=== PATIENT | male | born 1950 | race American Indian/Alaskan Native ===

== ENCOUNTER 2018-04-10 11:24 | Emergency (ER) | payer MEDICARE ==
[2018-04-10] MEDS ORDERED: NACL 0.9% 1000 ML 1,000 ML IV ONE (11:34)
[2018-04-10] MEDS ORDERED: ASPIRIN PO ONE (11:34)
[2018-04-10] MEDS ORDERED: MORPHINE IV ONE (11:35)
--- NOTE | 2018-04-10 11:43 | Emergency Department Report ---
ED Shortness of Breath HPI - General Stated Complaint: SOB/CHEST PAIN Time Seen by Provider: 04/10/18 11:33 Source: patient, family Mode of arrival: Wheelchair Limitations: No Limitations - History of Present Illness Initial Comments: Patient is 67-year-old male that presents emergency room with complaints of chest pain, shortness of breath. Patient states his pain is 10 out of 10. Patient states pain is better with rest and worse with exertion. Patient states he has had radiation 2 days ago for prostate cancer. Patient states his chest pain is right chest and radiating to his right shoulder. Patient states his chest pain is also worse with palpation. Patient denies past medical history of diabetes, hypertension and hyperlipidemia. Patient states only past medical history of advanced prostate cancer. Family states that the patient had a syncopal episode just prior to coming to the ER. Family states that the symptoms were brief period and loss of consciousness worse for a few seconds. MD Complaint: shortness of breath, chest pain -: Sudden Radiation: right arm Severity: severe Pain Scale: 10 Quality: stabbing Consistency: constant Improves With: rest Worsens With: exertion Known History Of: other (recent radiation for prostate cancer) Associated Symptoms: chest pain, pain with inspiration, syncope Treatments Prior to Arrival: none - Related Data Home Oxygen Therapy: No Allergies Allergy/AdvReac Type Severity Reaction Status Date / Time Penicillins AdvReac Anaphylaxis Verified 04/10/18 13:04 ED Review of Systems ROS: Stated complaint: SOB/CHEST PAIN Other details as noted in HPI Constitutional: denies: chills, fever Eyes: denies: eye pain, eye discharge, vision change ENT: denies: ear pain, throat pain Respiratory: shortness of breath. denies: cough, wheezing Cardiovascular: chest pain, palpitations Endocrine: no symptoms reported Gastrointestinal: denies: abdominal pain, nausea, diarrhea Genitourinary: denies: urgency, dysuria Musculoskeletal: denies: back pain, joint swelling, arthralgia Skin: denies: rash, lesions Neurological: denies: headache, weakness, paresthesias Psychiatric: denies: anxiety, depression Hematological/Lymphatic: denies: easy bleeding, easy bruising ED Past Medical Hx - Past Medical History Previous Medical History?: Yes Additional medical history: prostate cancer - Surgical History Past Surgical History?: No - Family History Family history: no significant - Social History Smoking Status: Never Smoker Substance Use Type: None ED Physical Exam - General Limitations: No Limitations General appearance: alert, in no apparent distress - Head Head exam: Present: atraumatic, normocephalic - Eye Eye exam: Present: normal appearance, PERRL Pupils: Present: normal accommodation - ENT ENT exam: Present: mucous membranes moist - Neck Neck exam: Present: normal inspection, full ROM - Respiratory Respiratory exam: Present: normal lung sounds bilaterally, chest wall tenderness. Absent: respiratory distress - Cardiovascular Cardiovascular Exam: Present: regular rate, normal rhythm, tachycardia. Absent: systolic murmur, diastolic murmur, rubs, gallop - GI/Abdominal GI/Abdominal exam: Present: soft, normal bowel sounds. Absent: distended, tenderness, guarding, rebound - Rectal Rectal exam: Present: deferred - Extremities Exam Extremities exam: Present: normal inspection - Back Exam Back exam: Present: normal inspection - Neurological Exam Neurological exam: Present: alert, oriented X3 - Psychiatric Psychiatric exam: Present: normal affect, normal mood - Skin Skin exam: Present: warm, dry, intact, normal color. Absent: rash ED Course Vital Signs 04/10/18 04/10/18 04/10/18 11:31 11:35 11:42 Temperature 98.6 F Pulse Rate 147 H 147 H Respiratory 26 H 18 18 Rate Blood Pressure 124/69 Blood Pressure 124/69 [Right] O2 Sat by Pulse 98 98 Oximetry 04/10/18 04/10/18 04/10/18 11:45 12:00 12:15 Temperature 97.7 F Pulse Rate 137 H 129 H 125 H Respiratory 19 17 19 Rate Blood Pressure 124/69 113/57 113/57 Blood Pressure [Right] O2 Sat by Pulse Oximetry 04/10/18 04/10/18 04/10/18 12:31 12:45 13:21 Temperature Pulse Rate 124 H 124 H 119 H Respiratory 15 16 17 Rate Blood Pressure 113/57 113/57 113/57 Blood Pressure [Right] O2 Sat by Pulse Oximetry 04/10/18 04/10/18 04/10/18 13:31 13:45 14:00 Temperature Pulse Rate 116 H 118 H 117 H Respiratory 18 16 16 Rate Blood Pressure 113/57 110/62 95/59 Blood Pressure [Right] O2 Sat by Pulse Oximetry 04/10/18 04/10/18 04/10/18 14:15 14:31 14:45 Temperature Pulse Rate 122 H 118 H 118 H Respiratory 18 19 18 Rate Blood Pressure 95/59 95/59 101/61 Blood Pressure [Right] O2 Sat by Pulse Oximetry 04/10/18 04/10/18 04/10/18 15:05 15:09 15:15 Temperature 98.4 F Pulse Rate 118 H 116 H 116 H Respiratory 19 16 16 Rate Blood Pressure Blood Pressure 101/61 [Right] O2 Sat by Pulse Oximetry 04/10/18 04/10/18 04/10/18 15:20 15:31 15:45 Temperature 98.4 F Pulse Rate 115 H 114 H Respiratory 2 L 16 15 Rate Blood Pressure 101/61 101/61 Blood Pressure [Right] O2 Sat by Pulse 100 Oximetry 04/10/18 04/10/18 16:00 16:15 Temperature Pulse Rate 116 H 119 H Respiratory 12 16 Rate Blood Pressure 101/61 114/50 Blood Pressure [Right] O2 Sat by Pulse Oximetry - Reevaluation(s) Reevaluation #1: Discussed all results with patient and family. Discussed transfer with patient and family. Patient and family agree with the plan of care and transfer. Patient still denies trauma to head. 04/10/18 14:24 - Consultations Consultation #1: [facility] consultation and paged 04/10/18 14:20 ER doctor, Dr. Long has accepted patient for ER to ER transfer. Patient will be transported via ground EMS. 04/10/18 15:22 ED Medical Decision Making - Lab Data Result diagrams: 04/10/18 11:43 04/10/18 11:43 - EKG Data -: EKG Interpreted by [facility] EKG shows normal: sinus rhythm, axis, intervals, QRS complexes, ST-T waves Rate: tachycardia - Radiology Data Radiology results: report reviewed CT head without contrast: Syncope. Axial images demonstrates an extracerebral convex high density collection along the left temporoparietal region measuring 3.4 cm in length and approximately 7 mm in maximum height. There did not appear to be any significant focal mass effect although the midline appears to be shifted to the right by approximately 2 mm. The bone appears intact but there is superficial swelling of the soft tissues. The remainder of the intracranial anatomy appears generally unremarkable for this patient's stated age. There is a small polyp in the medial left maxillary sinus and there is mucoperiosteal thickening of the posterior left ethmoid sinuses. There is marked nuchal periosteal thickening in the left sphenoid sinus with what may represent an air-fluid level. Minimal mucoperiosteal thickening noted in the left sphenoid sinus. The bony structures otherwise appear unremarkable. Impression: 1. Evidence of head trauma with left subdural hematoma and slight midline shift. 2. Sinus inflammatory changes with possible fluid in the sphenoid sinus. ] CTA CHEST: HISTORY: chest pain. COMPARISON: The AP chest performed same day. TECHNIQUE: Helical CT in 1.25mm intervals following IV contrast. Pulmonary embolus protocol. Sagittal and coronal reformatted images. Rotational MIP images. FINDINGS: Contrast bolus is satisfactory. No pulmonary embolus is identified. Thyroid gland: Normal. Tracheobronchial tree: Normal. Esophagus: Normal. Heart: Normal. Pericardium: Normal. Mediastinum: Normal. Lung Bedoya: normal. Pleural Spaces: Small bilateral layering pleural effusions are identified, right greater than left. There is a very subtle focal area of smooth pleural thickening measuring 2.4 cm in diameter and 4 mm in thickness in the lateral left lung. Musculoskeletal: Diffuse sclerosis of the bony structures is demonstrated suggesting diffuse metastatic disease. No pathologic fracture is identified. Limited images of the upper abdomen demonstrate scattered, small, subtle enhancing lesions in the liver. The largest lesion measures 2.3 cm near the base of the caudate lobe IMPRESSION: No evidence for pulmonary embolus. Small bilateral pleural effusions. Focal area of pleural thickening in the lateral left lung which could be related to metastatic disease. Multiple subtle liver lesions consistent with metastatic process. Diffuse bony lesions. AP CHEST: HISTORY: chest pain No comparison at this facility. There are multiple sclerotic bony lesions throughout the thoracic cage and shoulders. A metastatic process is suspected. Normal heart size and pulmonary vessels. The lungs are generally clear. No evidence for pneumonia, mass or pneumothorax. IMPRESSION: Multiple sclerotic bony lesions are identified concerning for a metastatic process. Prostate cancer? Unremarkable heart and lungs. - Medical Decision Making Patient is 67-year-old male presents emergency with syncopal episode, chest pain and shortness of breath. Patient found to have a subdural hematoma. Patient transferred to [facility]. Patient was accepted by the ER doctor, Dr. Benítez for ER to ER transfer. Patient be transported via ground EMS. Patient's d-dimer elevated CTA done. CTA was negative except for multiple metastasis. Labs unremarkable except for elevated d-dimer, lactic acidosis, and elevated WBC. Findings consistent with history of radiation and cancer. Patient stable for transfer. Patient was transported via ground EMS. Patient agrees with plan of care. - Differential Diagnosis syncope. Chest pain. Short of breath. PE. Critical Care Time: Yes Critical care attestation.: If time is entered above; I have spent that time in minutes in the direct care of this critically ill patient, excluding procedure time. Critical Care Time: 80 minutes ED Disposition Clinical Impression: Lactic acid acidosis, SOB (shortness of breath), Subdural hematoma Chest pain Qualifiers: Chest pain type: unspecified Qualified Code(s): R07.9 - Chest pain, unspecified Syncope Qualifiers: Syncope type: unspecified Qualified Code(s): R55 - Syncope and collapse Disposition: DC/TX-70 ANOTHER TYPE HLTHCARE Is pt being admited?: No Does the pt Need Aspirin: No Condition: Critical Instructions: Chest Pain (ED), Syncope (ED) Referrals: ANDREA VAUGHN MD [Primary Care Provider] - 3-5 Days Time of Disposition: 14:20
[2018-04-10] MEDS ORDERED: NACL 0.9% 1000 ML IV ONE (11:46)
[2018-04-10] MEDS ORDERED: ZOFRAN ONE (11:50)
--- NOTE | 2018-04-10 11:51 | XRay Report ---
AP CHEST: HISTORY: chest pain No comparison at this facility. There are multiple sclerotic bony lesions throughout the thoracic cage and shoulders. A metastatic process is suspected. Normal heart size and pulmonary vessels. The lungs are generally clear. No evidence for pneumonia, mass or pneumothorax. IMPRESSION: Multiple sclerotic bony lesions are identified concerning for a metastatic process. Prostate cancer? Unremarkable heart and lungs.
[2018-04-10 12:02] LABS: Hematocrit 25.4 % (35.5-45.6); Hemoglobin 7.9 gm/dl (11.8-15.2); Mean Corpuscular HGB Conc 31 % (32-34); Platelet Count 456 K/mm3 (140-440); Red Blood Count 3.79 M/mm3 (3.65-5.03)
[2018-04-10 12:03] LABS: Mean Corpuscular Volume 67 fl (84-94); Red Cell Distribution Width 24.3 % (13.2-15.2)
[2018-04-10 12:17] LABS: Albumin 2.8 g/dL (3.9-5); BUN/Creatinine Ratio 28; Blood Urea Nitrogen 14 mg/dL (9-20); Creatine Kinase MB < 1.0 ng/mL (0.0-4.0); Hemolysis Index 95
[2018-04-10] MEDS ORDERED: MAXIPIME/NS 2 GM/100 ML 2 GM/100 ML BAG IV ONE (12:20)
[2018-04-10 12:22] LABS: Alanine Aminotransferase 8 units/L (7-56)
[2018-04-10 12:25] LABS: Calcium 8.1 mg/dL (8.4-10.2)
--- NOTE | 2018-04-10 13:40 | Cat Scan Report ---
CT head without contrast: Syncope. Axial images demonstrates an extracerebral convex high density collection along the left temporoparietal region measuring 3.4 cm in length and approximately 7 mm in maximum height. There did not appear to be any significant focal mass effect although the midline appears to be shifted to the right by approximately 2 mm. The bone appears intact but there is superficial swelling of the soft tissues. The remainder of the intracranial anatomy appears generally unremarkable for this patient's stated age. There is a small polyp in the medial left maxillary sinus and there is mucoperiosteal thickening of the posterior left ethmoid sinuses. There is marked nuchal periosteal thickening in the left sphenoid sinus with what may represent an air-fluid level. Minimal mucoperiosteal thickening noted in the left sphenoid sinus. The bony structures otherwise appear unremarkable. Impression: 1. Evidence of head trauma with left subdural hematoma and slight midline shift. 2. Sinus inflammatory changes with possible fluid in the sphenoid sinus.
--- NOTE | 2018-04-10 13:45 | Cat Scan Report ---
CTA CHEST: HISTORY: chest pain. COMPARISON: The AP chest performed same day. TECHNIQUE: Helical CT in 1.25mm intervals following IV contrast. Pulmonary embolus protocol. Sagittal and coronal reformatted images. Rotational MIP images. FINDINGS: Contrast bolus is satisfactory. No pulmonary embolus is identified. Thyroid gland: Normal. Tracheobronchial tree: Normal. Esophagus: Normal. Heart: Normal. Pericardium: Normal. Mediastinum: Normal. Lung Bedoya: normal. Pleural Spaces: Small bilateral layering pleural effusions are identified, right greater than left. There is a very subtle focal area of smooth pleural thickening measuring 2.4 cm in diameter and 4 mm in thickness in the lateral left lung. Musculoskeletal: Diffuse sclerosis of the bony structures is demonstrated suggesting diffuse metastatic disease. No pathologic fracture is identified. Limited images of the upper abdomen demonstrate scattered, small, subtle enhancing lesions in the liver. The largest lesion measures 2.3 cm near the base of the caudate lobe IMPRESSION: No evidence for pulmonary embolus. Small bilateral pleural effusions. Focal area of pleural thickening in the lateral left lung which could be related to metastatic disease. Multiple subtle liver lesions consistent with metastatic process. Diffuse bony lesions.
[2018-04-10 14:42] LABS: Basophils % (Manual) 0 % (0.0-1.8); Eosinophils % (Manual) 0 % (0.0-4.3); Total Cells Counted 100
[2018-04-10 14:43] LABS: Anisocytosis 2+; Hypochromasia 1+; Ovalocytes 1+; Poikilocytosis 2+; Target Cells 1+; Tear Drop Cells Few
[2018-04-10 14:44] LABS: Platelet Estimate Consistent w Auto
[2018-04-10 16:35] VITALS: BP 114/50
== END 2018-04-10 16:32 | disposition other institution (70) ==
LOC: ED 11:24
DX: S06.5X0A Traumatic subdural hemorrhage without loss of consciousness, initial encounter (principal); R07.89 Other chest pain; R06.02 Shortness of breath; E87.2 Acidosis; Z85.46 Personal history of malignant neoplasm of prostate; Z88.0 Allergy status to penicillin; X58.XXXA Exposure to other specified factors, initial encounter; Y93.89 Activity, other specified; Y92.89 Other specified places as the place of occurrence of the external cause; Y99.8 Other external cause status
CPT/HCPCS: 36415; 70450; 71045; 71275; 80053; 82140; 82550; 82553; 83880; 84484; 85007; 85025; 85379; 87040; 93005; 93010; 96361; 96365; 96375; 99291; 99292; J0692; J2270; J2405; J7030; Q9967

== ENCOUNTER 2018-06-11 11:33 | Inpatient (IN) | payer MEDICARE, MEDICAID ==
--- NOTE | 2018-06-11 12:33 | Emergency Department Report ---
- General Chief complaint: Weakness Stated complaint: NO BMX6 Time Seen by Provider: 06/11/18 12:19 Source: EMS Mode of arrival: Stretcher Limitations: Altered Mental Status, Physical Limitation - History of Present Illness Initial comments: 67-year-old male with a past medical history of metastatic prostate cancer and recent subdural in March presents to the hospital with generalized weakness and possible dehydration. Patient has had a gradual decline since discharge from the hospital after subdural treatment in March. Patient has a visiting nurse who recommended transport to the hospital due to worsening weakness. The last 2-3 days patient has been too weak to ambulate. He R he has a poor appetite and has been drinking less fluids. He complains of pain to his b ilateral shoulders. He is on morphine 60 mg extended release by mouth twice a day, and Tylenol and morphine 15 mg when necessary additional pain. He has not had a bowel movement in 6 days. No reports of cough or fever. Patient is still receiving Lupron shots. Family is interested in discussing hospice care for additional home help. PMD: Dr. Montgomery Hematolgeremias Adames Severity scale (0 -10): 6 - Related Data Allergies Allergy/AdvReac Type Severity Reaction Status Date / Time Penicillins AdvReac Anaphylaxis Verified 04/10/18 13:04 ED Review of Systems ROS: Stated complaint: NO BMX6 Other details as noted in HPI Comment: All other systems reviewed and negative ED Past Medical Hx - Past Medical History Previous Medical History?: Yes Hx Hypertension: No Hx CVA: No Hx Heart Attack/AMI: No Hx Congestive Heart Failure: No Hx Diabetes: No Hx Deep Vein Thrombosis: No Hx Pulmonary Embolism: No Hx GERD: No Hx Liver Disease: No Hx Renal Disease: No Hx of Cancer: Yes Hx Sickle Cell Disease: No Hx Arthritis: No Hx Headaches / Migraines: No Hx Seizures: No Hx Kidney Stones: No Hx Psychiatric Treatment: No Hx Asthma: No Hx COPD: No Hx Tuberculosis: No Hx Dementia: No Hx HIV: No Additional medical history: prostate cancer - Surgical History Hx Coronary Stent: No Hx Open Heart Surgery: No Hx Pacemaker: No Hx Internal Defibrillator: No Hx Cholecystectomy: No Hx Appendectomy: No Hx Breast Surgery: No - Social History Smoking Status: Never Smoker Substance Use Type: None ED Physical Exam - General Limitations: Altered Mental Status, Physical Limitation - Other Other exam information: General: No limitations, patient is alert in no acute distress Head exam: Atraumatic, normocephalic Eyes exam: Normal appearance, pupils equal reactive to light, extraocular movements intact ENT: Moist mucous membrane, normal oropharynx Neck exam: Normal inspection, full range of motion, no meningismus nontender Respiratory exam: Clear to auscultation bilateral, no wheezes, rales, crackles Cardiovascular: Tachycardic regular rhythm Abdomen: Soft, nondistended, right upper quadrant tenderness, with normal bowel sounds, no rebound, or guarding Extremity: Full range of motion but pain to bilateral shoulders Back: Normal Inspection, full range of motion, no tenderness Neurologic: Alert, oriented x3, cranial nerves intact, generalized weakness without focal deficit sensation grossly intact Psychiatric: normal affect, normal mood Skin: Warm, dry, intact ED Course Vital Signs 06/11/18 06/11/18 06/11/18 11:56 12:00 12:02 Temperature 97.9 F Pulse Rate 136 H 135 H 134 H Respiratory 20 20 16 Rate Blood Pressure 133/67 133/67 O2 Sat by Pulse 100 100 99 Oximetry 06/11/18 06/11/18 06/11/18 12:15 12:30 12:45 Temperature Pulse Rate 132 H 142 H 145 H Respiratory 16 21 21 Rate Blood Pressure 123/62 123/62 129/67 O2 Sat by Pulse 100 100 100 Oximetry 06/11/18 06/11/18 06/11/18 13:00 13:15 13:30 Temperature Pulse Rate 146 H 139 H 135 H Respiratory 28 H 18 17 Rate Blood Pressure 129/67 120/62 120/62 O2 Sat by Pulse 97 100 100 Oximetry 06/11/18 13:46 Temperature Pulse Rate 139 H Respiratory 22 Rate Blood Pressure 135/65 O2 Sat by Pulse 98 Oximetry - Consultations Consultation #1: 06/11/18 14:[address] adames (no discussed) can be completed during admission (not an emergent consult) ED Medical Decision Making - Lab Data Result diagrams: 06/11/18 13:01 06/11/18 13:01 - EKG Data -: EKG Interpreted by Me EKG shows normal: sinus rhythm, axis (qrs 59), QRS complexes (qrsd 75), ST-T waves Rate: tachycardia, bradycardia (136) - Radiology Data Radiology results: report reviewed ABDOMINAL SERIES: History: Constipation, tachycardia, metastatic cancer. Erect chest film shows no acute or significant changes involving the heart or lung lauren. There is no evidence of free air beneath the diaphragms. The gas pattern within the abdomen is unremarkable. There is no evidence of bowel dilatation, significant air-fluid levels, or masses. There is moderate stool in the right hemicolon. Organ shadows are unremarkable. There are numerous sclerotic bony lesions throughout the axial and proximal appendicular skeleton consistent with metastatic disease. IMPRESSION: Mild constipation. Diffuse skeletal metastasis. - Medical Decision Making gen weakness and tachy due to dehydration vs anemia vs sepsis Poor po intake reported. bun/cr normal but low sodium and chloride >30ml/kg bolus on NS given levaquin given for possible sepsis. No source on infection identified. cultures pending. UA collection pending other possibility of SIRS related to Cancer without infection type and screen ordered for anemia. 1 point drop hemoglobin drop compared to previous. 1 unit prbc ordered If tachy persists despite other sources need to be considered such as Pulm embolism (no tachypnea or hypoxia or chest pain at this time)or pain. thyroid panel with normal t4 hospitalist informed of admission and family would like to to discuss discharge into home hospice - Differential Diagnosis anemia, dehydration, infection, Pulm emboli, pain, fever, constipation Critical Care Time: No Critical care attestation.: If time is entered above; I have spent that time in minutes in the direct care of this critically ill patient, excluding procedure time. ED Disposition Clinical Impression: Prostate cancer metastatic to multiple sites, Generalized weakness, Tachycardia, SIRS (systemic inflammatory response syndrome), Dehydration, Anemia Disposition: OP ADMIT IP TO THIS HOSP Is pt being admited?: Yes Condition: Stable Time of Disposition: 14:25
[2018-06-11] MEDS ORDERED: NACL 0.9% 1000 ML IV ONE (12:41)
[2018-06-11 13:29] LABS: Hematocrit 21.9 % (35.5-45.6); Hemoglobin 6.8 gm/dl (11.8-15.2); Mean Corpuscular HGB Conc 31 % (32-34); Platelet Count 218 K/mm3 (140-440); Red Blood Count 3.59 M/mm3 (3.65-5.03)
[2018-06-11 13:30] LABS: Mean Corpuscular Volume 61 fl (84-94); Red Cell Distribution Width 21.9 % (13.2-15.2)
--- NOTE | 2018-06-11 13:36 | XRay Report ---
ABDOMINAL SERIES: History: Constipation, tachycardia, metastatic cancer. Erect chest film shows no acute or significant changes involving the heart or lung lauren. There is no evidence of free air beneath the diaphragms. The gas pattern within the abdomen is unremarkable. There is no evidence of bowel dilatation, significant air-fluid levels, or masses. There is moderate stool in the right hemicolon. Organ shadows are unremarkable. There are numerous sclerotic bony lesions throughout the axial and proximal appendicular skeleton consistent with metastatic disease. IMPRESSION: Mild constipation. Diffuse skeletal metastasis.
[2018-06-11 13:37] LABS: INR 1.37 (0.87-1.13)
[2018-06-11 13:38] LABS: Partial Thromboplastin Time 42.9 Sec. (24.2-36.6)
[2018-06-11 13:55] LABS: Creatine Kinase MB 1.6 ng/mL (0.0-4.0)
[2018-06-11 13:57] LABS: Alanine Aminotransferase 9 units/L (7-56); Albumin 2.5 g/dL (3.9-5); BUN/Creatinine Ratio 33; Blood Urea Nitrogen 13 mg/dL (9-20); Calcium 7.9 mg/dL (8.4-10.2); Hemolysis Index 0
[2018-06-11 14:02] LABS: Free T4 (Free Thyroxine) 1.46 ng/dL (0.76-1.46)
[2018-06-11] MEDS ORDERED: LEVAQUIN 750MG/150ML 750 MG/150 ML BAG IV ONE (14:03)
[2018-06-11 14:13] LABS: Basophils % (Manual) 0 % (0.0-1.8); Myelocytes # (Manual) 0.1 K/mm3; Total Cells Counted 100
[2018-06-11] MEDS ORDERED: NACL 0.9% IV ONE (14:13)
[2018-06-11] MEDS ORDERED: NACL 0.9% 500 ML 500 ML IV ONE (14:13)
[2018-06-11 14:14] LABS: Anisocytosis 1+; Giant Platelets Rare; Hypochromasia 1+; Large Platelets Few; Ovalocytes Few; Platelet Estimate Consistent w Auto; Poikilocytosis 2+; Target Cells 1+; Tear Drop Cells Rare
[2018-06-11] MEDS ORDERED: PROVENTIL IH PRN (17:48)
[2018-06-11] MEDS ORDERED: ZOFRAN IV PRN (17:48)
[2018-06-11] MEDS ORDERED: TYLENOL PO PRN (17:48)
[2018-06-11] MEDS ORDERED: SODIUM CHLORIDE FLUSH SYRINGE 10 ML IV PRN (17:48)
--- NOTE | 2018-06-11 17:51 | History and Physical Report ---
History of Present Illness Chief complaint: He is weak, and its getting worse History of present illness: 67 YO Male with CaP with metastatic disease to the Spine, Severe Malnutrition, Encephalopathy presents to ED for evaluation. Pt is confused and lethargic and unable to provide history. Pt history provided by and daughter who is at bedside during exam and interview. Pt family reports that patient has become progressively weak and confused and is currently unable to independently conduct activities of daily living. EMS notified and upon arrival the patient was found to be in distress and transported to [facility]. Pt seen and evaluated in ED and found to have Encephalopathy, SIRS, and Metastatic Prostate Cancer. Pt found to have poor prognosis. Pt family request supportive care and transition to hospice care . Pt family counseled and request [facility]. Consult placed in ED. Pt family elects to make patient AND/DNR. Pt admitted to [facility] unit. Pt family acknowledge understanding of poor prognosis, and agrees with plan of care. No further history obtainable. No previous admissions for review. Oncology team consulted in ED. PCP: Dr. Montgomery Past History Past Medical History: cancer Past Surgical History: No surgical history, Other (reviewed) Social history: , lives with family. denies: smoking, alcohol abuse, prescription drug abuse Family history: no significant family history (reviewed) Medications and Allergies Allergies Allergy/AdvReac Type Severity Reaction Status Date / Time Penicillins AdvReac Anaphylaxis Verified 04/10/18 13:04 Active Meds: Active Medications Acetaminophen (Tylenol) 650 mg PO Q4H PRN PRN Reason: Pain MILD(1-3)/Fever >100.5/PEREYRA Albuterol (Proventil) 2.5 mg IH Q4HRT PRN PRN Reason: Shortness Of Breath Docusate Sodium (Colace) 100 mg PO BID GERHARD Hydromorphone HCl (Dilaudid) 0.5 mg IV Q3H PRN PRN Reason: Pain , Severe (7-10) Sodium Chloride (Nacl 0.45% 1000 Ml) 1,000 mls @ 42 mls/hr IV DIRECT GERHARD Ondansetron HCl (Zofran) 4 mg IV Q8H PRN PRN Reason: Nausea And Vomiting Sodium Chloride (Sodium Chloride Flush Syringe 10 Ml) 10 ml IV BID GERHARD Sodium Chloride (Sodium Chloride Flush Syringe 10 Ml) 10 ml IV PRN PRN PRN Reason: LINE FLUSH Review of Systems Constitutional: weight loss, weakness, lethargy, no weight gain, no fever, no chills Ears, nose, mouth and throat: no ear pain, no ear discharge, no tinnitis, no decreased hearing, no nose pain Cardiovascular: no chest pain, no orthopnea, no palpitations, no rapid/irregular heart beat, no edema Respiratory: no cough, no cough with sputum, no excessive sputum, no hemoptysis, no shortness of breath Gastrointestinal: no nausea, no vomiting, no diarrhea, no constipation Genitourinary Male: no hematuria, no flank pain, no discharge, no urinary frequency, no urinary hesitancy, no nocturia Rectal: no pain, no incontinence, no bleeding Musculoskeletal: no neck stiffness, no neck pain, no shooting arm pain, no arm numbness/tingling, no low back pain Integumentary: no rash, no pruritis, no redness, no sores, no wounds Neurological: no paralysis, no weakness, no parathesias, no numbness, no tingling, no seizures Psychiatric: no anxiety, no memory loss, no change in sleep habits, no sleep disturbances, no hypersomnia, no change in appetite, no change in libido Endocrine: no cold intolerance, no heat intolerance, no excessive thirst, no polydipsia, no polyuria, no nocturia, no flushing Hematologic/Lymphatic: no easy bruising, no easy bleeding, no lymphadenopathy, no lymphedema Allergic/Immunologic: no urticaria, no allergic rhinitis, no wheezing, no anaphylaxis Exam - Constitutional Vitals: Temp Pulse Resp BP Pulse Ox 97.9 F 137 H 23 128/53 100 06/11/18 12:02 06/11/18 15:00 06/11/18 15:00 06/11/18 15:00 06/11/18 15:00 General appearance: Present: mild distress, cachectic - EENT Eyes: Present: miosis - Neck Neck: Present: supple, normal ROM - Respiratory Respiratory effort: normal Respiratory: bilateral: CTA - Cardiovascular Heart Sounds: Present: S1 & S2. Absent: rub, click - Extremities Extremities: pulses symmetrical, No edema - Abdominal General gastrointestinal: Present: soft, non-tender, non-distended, normal bowel sounds Male genitourinary: Present: normal - Integumentary Integumentary: Present: clear, dry, clammy, decreased turgor - Musculoskeletal Musculoskeletal: generalized weakness - Psychiatric Psychiatric: no appropriate mood/affect, no intact judgment & insight, no memory intact - Neurologic Neurologic: no focal deficits, moves all extremities, no gait normal Results - Labs CBC & Chem 7: 06/11/18 13:01 06/11/18 13:01 Labs: Abnormal lab results 06/11/18 06/11/18 06/11/18 Range/Units 13:01 13:01 13:01 WBC 13.6 H (4.5-11.0) K/mm3 RBC 3.59 L (3.65-5.03) M/mm3 Hgb 6.8 L (11.8-15.2) gm/dl Hct 21.9 L (35.5-45.6) % MCV 61 L (84-94) fl MCH 19 L (28-32) pg MCHC 31 L (32-34) % RDW 21.9 H (13.2-15.2) % Seg Neuts % (Manual) 83.0 H (40.0-70.0) % Lymphocytes % (Manual) 6.0 L (13.4-35.0) % Seg Neutrophils # Man 11.3 H (1.8-7.7) K/mm3 Lymphocytes # (Manual) 0.8 L (1.2-5.4) K/mm3 PT 17.8 H (12.2-14.9) Sec. INR 1.37 H (0.87-1.13) APTT 42.9 H (24.2-36.6) Sec. Sodium 130 L (137-145) mmol/L Chloride 96.1 L (98-107) mmol/L Carbon Dioxide 18 L (22-30) mmol/L Creatinine 0.4 L (0.8-1.5) mg/dL Glucose 148 H (75-100) mg/dL Lactic Acid (0.7-2.0) mmol/L Calcium 7.9 L (8.4-10.2) mg/dL Total Bilirubin 1.70 H (0.1-1.2) mg/dL Alkaline Phosphatase 599 H (35-129) units/L Total Creatine Kinase (55-170) units/L Total Protein 6.0 L (6.3-8.2) g/dL Albumin 2.5 L (3.9-5) g/dL TSH (0.270-4.200) mlU/mL Crossmatch 06/11/18 06/11/18 06/11/18 Range/Units 13:01 13:01 13:01 WBC (4.5-11.0) K/mm3 RBC (3.65-5.03) M/mm3 Hgb (11.8-15.2) gm/dl Hct (35.5-45.6) % MCV (84-94) fl MCH (28-32) pg MCHC (32-34) % RDW (13.2-15.2) % Seg Neuts % (Manual) (40.0-70.0) % Lymphocytes % (Manual) (13.4-35.0) % Seg Neutrophils # Man (1.8-7.7) K/mm3 Lymphocytes # (Manual) (1.2-5.4) K/mm3 PT (12.2-14.9) Sec. INR (0.87-1.13) APTT (24.2-36.6) Sec. Sodium (137-145) mmol/L Chloride (98-107) mmol/L Carbon Dioxide (22-30) mmol/L Creatinine (0.8-1.5) mg/dL Glucose (75-100) mg/dL Lactic Acid 3.00 H* (0.7-2.0) mmol/L Calcium (8.4-10.2) mg/dL Total Bilirubin (0.1-1.2) mg/dL Alkaline Phosphatase (35-129) units/L Total Creatine Kinase 358 H (55-170) units/L Total Protein (6.3-8.2) g/dL Albumin (3.9-5) g/dL TSH 7.940 H (0.270-4.200) mlU/mL Crossmatch 06/11/18 Range/Units 13:42 WBC (4.5-11.0) K/mm3 RBC (3.65-5.03) M/mm3 Hgb (11.8-15.2) gm/dl Hct (35.5-45.6) % MCV (84-94) fl MCH (28-32) pg MCHC (32-34) % RDW (13.2-15.2) % Seg Neuts % (Manual) (40.0-70.0) % Lymphocytes % (Manual) (13.4-35.0) % Seg Neutrophils # Man (1.8-7.7) K/mm3 Lymphocytes # (Manual) (1.2-5.4) K/mm3 PT (12.2-14.9) Sec. INR (0.87-1.13) APTT (24.2-36.6) Sec. Sodium (137-145) mmol/L Chloride (98-107) mmol/L Carbon Dioxide (22-30) mmol/L Creatinine (0.8-1.5) mg/dL Glucose (75-100) mg/dL Lactic Acid (0.7-2.0) mmol/L Calcium (8.4-10.2) mg/dL Total Bilirubin (0.1-1.2) mg/dL Alkaline Phosphatase (35-129) units/L Total Creatine Kinase (55-170) units/L Total Protein (6.3-8.2) g/dL Albumin (3.9-5) g/dL TSH (0.270-4.200) mlU/mL Crossmatch See Detail Assessment and Plan - Patient Problems (1) Prostate cancer metastatic to multiple sites Current Visit: Yes Status: Acute Plan to address problem: Hospice consulted as per family request, Pain control, Morphine ED BID, Dilaudid prn, IVF resuscitation as tolerated, Pt family elects to make patient AND/DNR. (2) Encephalopathy Current Visit: Yes Status: Acute Plan to address problem: Bed alarm, fall precautions, comfort care, diet as tolerated, aspiration precautions. No further testing as per family. (3) Anemia Current Visit: Yes Status: Acute Plan to address problem: PRBC transfusion, supportive care. (4) SIRS (systemic inflammatory response syndrome) Current Visit: Yes Status: Acute Plan to address problem: Empiric antibiotics for 2-3 days, IVF resuscitation. Pt family elects to initiate comfort care measures. (5) Debility Current Visit: Yes Status: Acute Plan to address problem: Bed alarm, fall precautions, pain control, comfort measures, (6) DVT prophylaxis Current Visit: Yes Status: Acute Plan to address problem: SCD to ble while in bed. Pt has poor prognosis. Pt family elects for supportive care.
[2018-06-11] MEDS ORDERED: SENOKOT S PO PRN (17:52)
[2018-06-11] MEDS ORDERED: ATIVAN IV PRN (18:04)
[2018-06-11] MEDS ORDERED: NACL 0.9% 250ML 250 ML ONE (19:02)
[2018-06-11] MEDS ORDERED: FLEET PR PRN (19:49)
[2018-06-11] MEDS ORDERED: DILAUDID ONE (20:27)
[2018-06-11] MEDS: MS CONTIN ER PO SCH (21:20)
[2018-06-11] MEDS ORDERED: FERRLECIT 125 MG in NACL 0.9% 100 ML IV ONE (21:44)
[2018-06-11] MEDS ORDERED: COLACE PO SCH (22:00)
[2018-06-11] MEDS: SODIUM CHLORIDE FLUSH SYRINGE 10 ML IV SCH (23:21)
[2018-06-12 00:04] LABS: Bilirubin,Urine NEG (Negative); Blood,Urine NEG (Negative); Color,Urine Amber (Yellow); Protein,Urine <15 mg/dL mg/dL (Negative)
[2018-06-12] MEDS: DILAUDID IV PRN ×2 (00:22→12:20)
--- NOTE | 2018-06-12 08:53 | Progress Note ---
Assessment and Plan Assessment and plan: 67-year-old man with history of metastatic prostate cancer, recent subdural in March, presents to the hospital with generalized weakness and dehydration. He has had gradual decline since discharge from hospital in March. He was seen by visiting nurse at home who noted that he was too weak to ambulate and his appetite was very poor. He was complaining of generalized body pains worse in bilateral shoulders. He was on high doses of morphine and still requiring additional pain medication. he also had constipation and lack of bowel movement for over 6 days., The patient was still on Lupron shots. Family interested in hospice. Chest and abdomen x-ray; mild constipation, diffuse skeletal metastases Diagnoses Failure to thrive Metastatic prostate cancer Chronic pain due to metastatic cancer Ataxia Debility severe malnutrition Constipation acute metabolic encephalopathy SIRS Anemia of CD Subclinical hypothyroidism Hyponatremia Tachycardia Plan -Continue IV fluids Speech pathology evaluation for possible dysphasia PT and OT consults Encouraged increased intake of healthy fats and proteins, dietitian consult place -Family is not interested in invasive testing or procedures. -sp 1 unit prbc for anemia -We'll start patient on low-dose Synthroid given subclinical hyperthyroidism, we'll likely improve his symptoms -Steroids already given by oncology, the importance appreciated -Tachycardia noted, likely sinus tachycardia, will obtain 12-lead EKG Patient already referred to home hospice, which will provided at time of discharge The patient is DNR/DNI History Interval history: His family is concerned that he has not had a bowel movement. Review of systems Constitutional: No fevers, has generalized weakness CVS: No chest pain, no orthopnea, no dyspnea on exertion, no pedal edema GI: No abdominal pain, no diarrhea, no vomiting, no constipation Respiratory: No shortness of breath, no wheezing, no coughing Hospitalist Physical - Physical exam Narrative exam: General.: Appears chronically all HEENT: Moist mucous membranes, extraocular muscles intact, no lymphadenopathy Neck: supple Cardiac: S1-S2 heard Lungs: clear to auscultation bilaterally Abdomen: soft , nontender, nondistended, bowel sounds positive Extremities: no edema clubbing or cyanosis Skin: no rash or lesions Neurologic: Confused, generalized weakness Psych: calm, and cooperative - Constitutional Vitals: Temp Pulse Resp BP Pulse Ox 97.7 F 102 H 18 118/55 98 06/11/18 19:24 06/12/18 06:53 06/11/18 20:30 06/11/18 20:30 06/11/18 20:30 General appearance: Present: mild distress, cachectic Results - Labs CBC & Chem 7: 06/11/18 13:01 06/11/18 13:01 Labs: Laboratory Last Values WBC 13.6 K/mm3 (4.5-11.0) H 06/11/18 13:01 RBC 3.59 M/mm3 (3.65-5.03) L 06/11/18 13:01 Hgb 6.8 gm/dl (11.8-15.2) L 06/11/18 13:01 Hct 21.9 % (35.5-45.6) L 06/11/18 13:01 MCV 61 fl (84-94) L 06/11/18 13:01 MCH 19 pg (28-32) L 06/11/18 13:01 MCHC 31 % (32-34) L 06/11/18 13:01 RDW 21.9 % (13.2-15.2) H 06/11/18 13:01 Plt Count 218 K/mm3 (140-440) 06/11/18 13:01 Add Manual Diff Complete 06/11/18 13:01 Total Counted 100 06/11/18 13:01 Seg Neuts % (Manual) 83.0 % (40.0-70.0) H 06/11/18 13:01 Band Neutrophils % 0 % 06/11/18 13:01 Lymphocytes % (Manual) 6.0 % (13.4-35.0) L 06/11/18 13:01 Reactive Lymphs % (Man) 0 % 06/11/18 13:01 Monocytes % (Manual) 5.0 % (0.0-7.3) 06/11/18 13:01 Eosinophils % (Manual) 3.0 % (0.0-4.3) 06/11/18 13:01 Basophils % (Manual) 0 % (0.0-1.8) 06/11/18 13:01 Metamyelocytes % 2.0 % 06/11/18 13:01 Myelocytes % 1.0 % 06/11/18 13:01 Promyelocytes % 0 % 06/11/18 13:01 Blast Cells % 0 % 06/11/18 13:01 Nucleated RBC % Not Reportable 06/11/18 13:01 Seg Neutrophils # Man 11.3 K/mm3 (1.8-7.7) H 06/11/18 13:01 Band Neutrophils # 0.0 K/mm3 06/11/18 13:01 Lymphocytes # (Manual) 0.8 K/mm3 (1.2-5.4) L 06/11/18 13:01 Abs React Lymphs (Man) 0.0 K/mm3 06/11/18 13:01 Monocytes # (Manual) 0.7 K/mm3 (0.0-0.8) 06/11/18 13:01 Eosinophils # (Manual) 0.4 K/mm3 (0.0-0.4) 06/11/18 13:01 Basophils # (Manual) 0.0 K/mm3 (0.0-0.1) 06/11/18 13:01 Metamyelocytes # 0.3 K/mm3 06/11/18 13:01 Myelocytes # 0.1 K/mm3 06/11/18 13:01 Promyelocytes # 0.0 K/mm3 06/11/18 13:01 Blast Cells # 0.0 K/mm3 06/11/18 13:01 WBC Morphology Not Reportable 06/11/18 13:01 Hypersegmented Neuts Not Reportable 06/11/18 13:01 Hyposegmented Neuts Not Reportable 06/11/18 13:01 Hypogranular Neuts Not Reportable 06/11/18 13:01 Smudge Cells Not Reportable 06/11/18 13:01 Toxic Granulation Not Reportable 06/11/18 13:01 Toxic Vacuolation Not Reportable 06/11/18 13:01 Dohle Bodies Not Reportable 06/11/18 13:01 Pelger-Huet Anomaly Not Reportable 06/11/18 13:01 Amado Rods Not Reportable 06/11/18 13:01 Platelet Estimate Consistent w auto 06/11/18 13:01 Clumped Platelets Not Reportable 06/11/18 13:01 Plt Clumps, EDTA Not Reportable 06/11/18 13:01 Large Platelets Few 06/11/18 13:01 Giant Platelets Rare 06/11/18 13:01 Platelet Satelliting Not Reportable 06/11/18 13:01 Plt Morphology Comment Not Reportable 06/11/18 13:01 RBC Morphology Not Reportable 06/11/18 13:01 Dimorphic RBCs Not Reportable 06/11/18 13:01 Polychromasia Not Reportable 06/11/18 13:01 Hypochromasia 1+ 06/11/18 13:01 Poikilocytosis 2+ 06/11/18 13:01 Anisocytosis 1+ 06/11/18 13:01 Microcytosis Few 06/11/18 13:01 Macrocytosis Not Reportable 06/11/18 13:01 Spherocytes Not Reportable 06/11/18 13:01 Pappenheimer Bodies Not Reportable 06/11/18 13:01 Sickle Cells Not Reportable 06/11/18 13:01 Target Cells 1+ 06/11/18 13:01 Tear Drop Cells Rare 06/11/18 13:01 Ovalocytes Few 06/11/18 13:01 Helmet Cells Not Reportable 06/11/18 13:01 [place] Bodies Not Reportable 06/11/18 13:01 [place] Rings Not Reportable 06/11/18 13:01 [place] Cells Not Reportable 06/11/18 13:01 Bite Cells Not Reportable 06/11/18 13:01 Crenated Cell Not Reportable 06/11/18 13:01 Elliptocytes Not Reportable 06/11/18 13:01 Acanthocytes (Spur) Not Reportable 06/11/18 13:01 Rouleaux Not Reportable 06/11/18 13:01 Hemoglobin C Crystals Not Reportable 06/11/18 13:01 Schistocytes Not Reportable 06/11/18 13:01 Malaria parasites Not Reportable 06/11/18 13:01 Ish Bodies Not Reportable 06/11/18 13:01 Hem Pathologist Commnt No 06/11/18 13:01 PT 17.8 Sec. (12.2-14.9) H 06/11/18 13:01 INR 1.37 (0.87-1.13) H 06/11/18 13:01 APTT 42.9 Sec. (24.2-36.6) H 06/11/18 13:01 VBG pH 7.367 (7.320-7.420) 06/11/18 13:01 Sodium 130 mmol/L (137-145) L 06/11/18 13:01 Potassium 4.3 mmol/L (3.6-5.0) 06/11/18 13:01 Chloride 96.1 mmol/L (98-107) L 06/11/18 13:01 Carbon Dioxide 18 mmol/L (22-30) L 06/11/18 13:01 Anion Gap 20 mmol/L 06/11/18 13:01 BUN 13 mg/dL (9-20) 06/11/18 13:01 Creatinine 0.4 mg/dL (0.8-1.5) L 06/11/18 13:01 Estimated GFR > 60 ml/min 06/11/18 13:01 BUN/Creatinine Ratio 33 % 06/11/18 13:01 Glucose 148 mg/dL (75-100) H 06/11/18 13:01 Lactic Acid 1.80 mmol/L (0.7-2.0) 06/11/18 15:46 Calcium 7.9 mg/dL (8.4-10.2) L 06/11/18 13:01 Total Bilirubin 1.70 mg/dL (0.1-1.2) H 06/11/18 13:01 AST 31 units/L (5-40) 06/11/18 13:01 ALT 9 units/L (7-56) 06/11/18 13:01 Alkaline Phosphatase 599 units/L (35-129) H 06/11/18 13:01 Total Creatine Kinase 358 units/L (55-170) H 06/11/18 13:01 CK-MB (CK-2) 1.6 ng/mL (0.0-4.0) 06/11/18 13:01 CK-MB (CK-2) Rel Index 0.4 (0-4) 06/11/18 13:01 Troponin T < 0.010 ng/mL (0.00-0.029) 06/11/18 13:01 Total Protein 6.0 g/dL (6.3-8.2) L 06/11/18 13:01 Albumin 2.5 g/dL (3.9-5) L 06/11/18 13:01 Albumin/Globulin Ratio 0.7 % 06/11/18 13:01 TSH 7.940 mlU/mL (0.270-4.200) H 06/11/18 13:01 Free T4 1.46 ng/dL (0.76-1.46) 06/11/18 13:01 Urine Color Evita (Yellow) 06/11/18 Unknown Urine Turbidity Clear (Clear) 06/11/18 Unknown Urine pH 6.0 (5.0-7.0) 06/11/18 Unknown Ur Specific [place] 1.012 (1.003-1.030) 06/11/18 Unknown Urine Protein <15 mg/dl mg/dL (Negative) 06/11/18 Unknown Urine Glucose (UA) Neg mg/dL (Negative) 06/11/18 Unknown Urine Ketones Neg mg/dL (Negative) 06/11/18 Unknown Urine Blood Neg (Negative) 06/11/18 Unknown Urine Nitrite Neg (Negative) 06/11/18 Unknown Urine Bilirubin Neg (Negative) 06/11/18 Unknown Urine Urobilinogen 4.0 mg/dL (<2.0) 06/11/18 Unknown Ur Leukocyte Esterase Neg (Negative) 06/11/18 Unknown Urine WBC (Auto) 1.0 /HPF (0.0-6.0) 06/11/18 Unknown Urine RBC (Auto) 1.0 /HPF (0.0-6.0) 06/11/18 Unknown Blood Type A POSITIVE 06/11/18 13:42 Antibody Screen Negative 06/11/18 13:42 Crossmatch See Detail 06/11/18 13:42 Active Medications - Current Medications Current Medications: Generic Name Dose Route Start Last Admin Trade Name Freq PRN Reason Stop Dose Admin Acetaminophen 650 mg 06/11/18 17:48 Tylenol PO Q4H PRN Pain MILD(1-3)/Fever >100.5/PEREYRA Albuterol 2.5 mg 06/11/18 17:48 Proventil IH Q4HRT PRN Shortness Of Breath Hydromorphone HCl 0.5 mg 06/11/18 17:48 06/12/18 00:22 Dilaudid IV 0.5 mg Q3H PRN Administration Pain , Severe (7-10) Sodium Chloride 1,000 mls @ 42 mls/hr 06/11/18 18:00 Nacl 0.45% 1000 Ml IV DIRECT GERHARD Levofloxacin/Dextrose 500 mg in 100 mls @ 100 mls/hr 06/12/18 10:00 Levaquin 500mg/100ml IV 06/14/18 23:59 Q24HR [facility] Protocol Dexamethasone 20 mg/ Sodium 55 mls @ 100 mls/hr 06/12/18 08:43 Chloride IV 06/12/18 09:15 ONCE ONE Lorazepam 1 mg 06/11/18 18:04 06/11/18 23:20 Ativan IV 1 mg Q4H PRN Administration Agitation Morphine Sulfate 60 mg 06/11/18 22:00 06/11/18 21:20 Ms Contin Er PO 60 mg Q12HR GERHARD Administration Ondansetron HCl 4 mg 06/11/18 17:48 Zofran IV Q8H PRN Nausea And Vomiting Pneumococcal Polyvalent Vaccine 0.5 ml 06/12/18 12:00 Pneumovax 23 IM 06/12/18 12:01 .ONCE ONE Senna/Docusate Sodium 2 tab 06/11/18 17:52 06/11/18 21:31 Senokot S PO 2 tab Q12H PRN Administration Laxative Effect Sodium Biphosphate/Sodium Phosphate 133 ml 06/11/18 19:49 Fleet MO QDAY PRN Bowel Movement Sodium Chloride 10 ml 06/11/18 22:00 06/11/18 23:21 Sodium Chloride Flush Syringe 10 Ml IV 10 ml BID GERHARD Administration Sodium Chloride 10 ml 06/11/18 17:48 Sodium Chloride Flush Syringe 10 Ml IV PRN PRN LINE FLUSH
[2018-06-12] MEDS ORDERED: SORBITOL 70% PO PRN (08:54)
[2018-06-12] MEDS: MS CONTIN ER PO SCH ×3 (09:33→21:34)
[2018-06-12] MEDS: NACL 0.45% 1000 ML 1,000 ML IV SCH (09:35)
[2018-06-12] MEDS: SODIUM CHLORIDE FLUSH SYRINGE 10 ML IV SCH ×2 (09:38→21:34)
[2018-06-12] MEDS: LEVAQUIN 500MG/100ML 500 MG/100 ML BAG IV SCH (09:40)
[2018-06-12] MEDS ORDERED: DECADRON 20 MG in NACL 0.9% 50 ML IV ONE (11:00)
[2018-06-12] MEDS: MIRALAX 3350 PO SCH (11:20)
[2018-06-12] MEDS ORDERED: PNEUMOVAX 23 IM ONE (12:00)
[2018-06-12] MEDS ORDERED: AFLURIA QUAD 2018-2019 SYRINGE IM ONE (12:00)
[2018-06-12] MEDS ORDERED: NORCO 10/325 PO PRN (14:08)
[2018-06-12] MEDS ORDERED: LOVENOX SUB-Q SCH (22:00)
[2018-06-13] MEDS: DILAUDID IV PRN (00:54)
[2018-06-13] MEDS: MS CONTIN ER PO SCH ×2 (05:51→14:00)
[2018-06-13] MEDS ORDERED: SYNTHROID PO SCH (06:00)
[2018-06-13 08:28] VITALS: BP 119/61
--- NOTE | 2018-06-13 08:46 | Event Note ---
Date: 06/12/18 [id number]
[2018-06-13] MEDS: NACL 0.45% 1000 ML 1,000 ML IV SCH (09:25)
[2018-06-13] MEDS: LEVAQUIN 500MG/100ML 500 MG/100 ML BAG IV SCH (10:44)
[2018-06-13] MEDS: MIRALAX 3350 PO SCH (10:45)
[2018-06-13] MEDS: SODIUM CHLORIDE FLUSH SYRINGE 10 ML IV SCH (10:45)
--- NOTE | 2018-06-13 10:58 | Discharge Summary ---
Providers - Providers Date of Admission: 06/11/18 17:48 Attending physician: MARY ARRIAZA MD 06/11/18 14:09 Consult to Physician [CONS] Urgent Comment: called answ. serv./denise Consulting Provider: NURIA GALLEGOS Physician Instructions: Reason For Exam: metastatic cancer, gen weakness 06/12/18 08:47 Occupational Therapy Evaluate and Treat [CONS] Routine Comment: Reason For Exam: debiity Speech Therapy Evaluation and Treat [CONS] Routine Reason For Exam: dysphagia 06/12/18 08:53 Consult to Dietitian/Nutrition [CONS] Routine Physician Instructions: Reason For Exam: Reason for Consult: Malnutrition Physical Therapy Evaluation and Treat [CONS] Routine Comment: Reason For Exam: ataxia [facility] Condition: Stable Hospital course: 67-year-old man with history of metastatic prostate cancer, recent subdural in March, presents to the hospital with generalized weakness and dehydration. He has had gradual decline since discharge from hospital in March. He was seen by visiting nurse at home who noted that he was too weak to ambulate and his appetite was very poor. He was complaining of generalized body pains worse in bilateral shoulders. He was on high doses of morphine and still requiring additional pain medication. he also had constipation and lack of bowel movement for over 6 days., The patient was still on Lupron shots. Family interested in hospice. Chest and abdomen x-ray; mild constipation, diffuse skeletal metastases Diagnoses Failure to thrive Metastatic prostate cancer Chronic pain due to metastatic cancer Ataxia Debility severe malnutrition Constipation acute metabolic encephalopathy SIRS Anemia of CD Subclinical hypothyroidism Hyponatremia Tachycardia Plan -He received IV fluids, he receives his pathology evaluation, he was continued on his diet. Encouraged increased intake of healthy fats and proteins, he received dietitian consult -Family is not interested in invasive testing or procedures. -sp 1 unit prbc for anemia -He was started on on low-dose Synthroid given subclinical hyperthyroidism, with hope to improve his symptoms -He was started on steroids by his oncologist who saw him while in hospital, he is being discharged on a steroid taper -EKG confirmed sinus tachycardia which improved with IV fluids Patient already referred to home hospice, which will provided at time of discharge The patient is DNR/DNI Disposition: DC-50 TO HOSPICE (HOME) Time spent for discharge: 33 mins Core Measure Documentation - Palliative Care Palliative Care/ Comfort Measures: Hospice Care - Core Measures Any of the following diagnoses?: none Exam - Physical Exam Narrative exam: General.: Appears chronically all HEENT: Moist mucous membranes, extraocular muscles intact, no lymphadenopathy Neck: supple Cardiac: S1-S2 heard Lungs: clear to auscultation bilaterally Abdomen: soft , nontender, nondistended, bowel sounds positive Extremities: no edema clubbing or cyanosis Skin: no rash or lesions Neurologic: Confused, generalized weakness Psych: calm, and cooperative - Constitutional Vitals: Temp Pulse Resp BP Pulse Ox 97.7 F 107 H 18 119/61 100 06/13/18 08:04 06/13/18 08:04 06/13/18 08:04 06/13/18 08:04 06/13/18 08:04 Plan [facility] ARNAUD [Primary Care Provider] - 7 Days Prescriptions: Sennosides/Docusate [Senokot S] 2 tab PO QHS PRN #60 tablet PRN Reason: Laxative Effect Dexamethasone [Decadron] 4 mg PO Q24HR 30 Days tablet Na Biphos/Na Phosp [Fleet] 133 ml GA Q72H PRN #10 bottle PRN Reason: Constipation Polyethylene Glycol 3350 [Miralax 3350] 17 gm PO QDAY #30 powd.pack Morphine ER [Ms Contin ER] 45 mg PO Q8HR #270 tablet HYDROcodone/APAP 10-325 [Edroy 10-325 mg TAB] 1 each PO Q6H PRN #120 tablet PRN Reason: Pain, Moderate (4-6) Levothyroxine [Synthroid] 25 mcg PO DAILY@0600 #30 tablet
[2018-06-13] MEDS ORDERED: DECADRON PO SCH (11:00)
--- NOTE | 2018-06-14 03:01 | Consultation ---
REFERRED BY: Anirudh Quintanilla MD REASON FOR CONSULTATION: Metastatic prostate cancer. HISTORY OF PRESENT ILLNESS: I saw the patient, a 67-year-old male. He has a history of prostate cancer. This was diagnosed in 05/2011. This was diagnosed in [place]. Olyphant score was 9. The patient received radiation to the tumor, but in [place]. PSA ____ at the beginning and then it was down to 0.29. He was placed on Lupron and then moved to [place] in 2015. In 12/2015, PSA was ____. Bone scan had shown bone mets. He received Xgeva, Lupron, Xtandi. The patient received Taxotere, prednisone and before this, Zytiga, prednisone. The patient also has a history of beta thalassemia. The patient had disease progression, Erleada was started. Brain mets were found. He received palliative radiation and hospice was suggested; however, the patient did not agree to same. Recently, he was not able to ambulate. He came to the hospital. PAST MEDICAL HISTORY: As above. SURGICAL HISTORY: Noncontributory. SOCIAL HISTORY: Lives with family members. FAMILY HISTORY: Noncontributory. ALLERGIES: TO PENICILLIN. MEDICATIONS: Reviewed. PHYSICAL EXAMINATION: VITAL SIGNS: Temperature 98, pulse 118, respirations 20, BP 116/59. GENERAL: The patient is lethargic, minimally opens eyes. NECK: No neck lymph nodes. HEENT: There is a bump in the scalp on the left side. HEART: S1, S2. LUNGS: Clear to auscultation anteriorly. ABDOMEN: Soft. EXTREMITIES: No pedal edema. Lethargic. LABORATORY DATA: White cell 13, hemoglobin 6.8, MCV 61, platelet 218, potassium 4.3, creatinine 0.4, calcium 7.9, bilirubin 1.7. IMPRESSION: 1. Metastatic prostate cancer. 2. History of elevated PSA. 3. Bone mets. 4. Brain mets. 5. Anemia. 6. History of iron deficiency, status post iron. 7. Pain issues. 8. The patient's performance status is poor. There was a decision to send him for hospice few weeks ago, however, family had refused. I discussed with family regarding hospice for pain issues. We will give steroids and continue other pain medication. JOB# [id number] MAGNOLIA/NTS
== END 2018-06-13 16:45 | disposition hospice, home (50) | DRG 722 ==
LOC: ED 11:33 → 2B-ACE 17:48
PROVIDERS: ADMIT Internal Medicine; ATTEND Internal Medicine
PROC: 30233N1 Transfusion of Nonautologous Red Blood Cells into Peripheral Vein, Percutaneous Approach (ICD-10-PCS; principal; 2018-06-11)
PROC: 3E0234Z Introduction of Serum, Toxoid and Vaccine into Muscle, Percutaneous Approach (ICD-10-PCS; 2018-06-12)
DX: C61 Malignant neoplasm of prostate (principal); G93.41 Metabolic encephalopathy; E43 Unspecified severe protein-calorie malnutrition; R65.10 Systemic inflammatory response syndrome (SIRS) of non-infectious origin without acute organ dysfunction; E87.1 Hypo-osmolality and hyponatremia; C79.51 Secondary malignant neoplasm of bone; C79.31 Secondary malignant neoplasm of brain; E86.0 Dehydration; G89.29 Other chronic pain; R27.0 Ataxia, unspecified; D63.8 Anemia in other chronic diseases classified elsewhere; K59.00 Constipation, unspecified; E02 Subclinical iodine-deficiency hypothyroidism; R00.0 Tachycardia, unspecified; Z66 Do not resuscitate; Z23 Encounter for immunization; Z68.21 Body mass index [BMI] 21.0-21.9, adult; Z88.0 Allergy status to penicillin
CPT/HCPCS: 36415; 36430; 74022; 80053; 81001; 82140; 82550; 82553; 82805; 82962; 84439; 84443; 84484; 85007; 85025; 85610; 85730; 86850; 86900; 86901; 86920; 87040; 87086; 90471; 90686; 90732; 93005; 93010; 94760; 96361; 96365; G0378; G0008; G0009; J1100; J1170; J1650; J1956; J2060; J2916; J7030; J7050; J8540; P9016